=== PATIENT | male | born 2000 | race Caucasian/White ===

== ENCOUNTER → 2025-03-07 | Outpatient (CLI) | payer OTHER ==
[~2025-03-07] MED LIST: ISOVUE-370 76% 100ML VIAL As Ordered ONE; SILD50TA2
== END ==
LOC: M RAD 08:22
PROVIDERS: ATTEND Student in an Organized Health Care Education/Training Program
DX: R63.4 Abnormal weight loss (principal); R10.9 Unspecified abdominal pain; D61.818 Other pancytopenia
CPT/HCPCS: 71260; 74177; Q9967